=== PATIENT | male | born 1985 | race Caucasian/White ===

== ENCOUNTER → 2024-07-12 11:19 | Outpatient (REF) | payer OTHER, SELFPAY ==
[2024-07-12 14:20] LABS: Hepatitis B Surface Antibody Positive
[2024-07-14 17:22] LABS: Quantiferon Mitogen minus NIL 9.97 IU/mL; Quantiferon NIL 0.03 IU/mL; Quantiferon TB Gold Plus Negative (Negative)
== END ==
LOC: REG 11:19
PROVIDERS: ATTENDING PHYSICIAN Nurse Practitioner Family; FAMILY PHYSICIAN Family Medicine
DX: Z23 Encounter for immunization (principal)
CPT/HCPCS: 86480; 86706; 86787